=== PATIENT | male | born 2000 | race Caucasian/White ===

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

== ENCOUNTER 2021-04-11 11:16 | Emergency (ER) | payer MEDICAID, SELFPAY ==
[2021-04-11 11:17] VITALS: BP 139/75; PULSE 75; RESP 18; TEMP 36.2; O2SAT 98; BMI 34.2
[2021-04-11 12:32] LABS: Absolute Lymphocyte Count 1.45 X10^3/uL (0.83-4.51); Absolute Neutrophil Count 4.7 X10^3/uL (2.0-7.7); Basophil# 0.04 X10^3/uL; Basophil% 0.6 % (0-1); Eosinophil# 0.16 X10^3/uL; Eosinophils% 2.3 % (0-5); Hematocrit 45.6 % (40-54); Lymphocyte # 1.45 X10^3/ul (0.83-4.51); Lymphocyte % 20.7 % (19-41); Mean Corp Hgb Conc 35.1 g/dL (32-36); Mean Corpuscular Hgb 30.6 pg (27.0-32.0); Mean Corpuscular Volume 87.2 fL (80-94); Mean Platelet Vol. 10.5 fl (6.2-12.0); Monocyte# 0.61 X10^3/uL; Monocyte% 8.7 % (0-10); NRBC Flagged by Analyzer 0 % (0-5); Neutrophil # 4.73 X10^3/uL (2.7-7.7); Neutrophil % 67.4 % (47-70); Platelet Count 307 K/mm3 (150-450); RBC Distribution Width CV 12.6 % (11.6-14.6); RBC Distribution Width SD 40.2 fl (35.1-43.9); Red Blood Count 5.23 M/mm3 (4.6-6.2)
[2021-04-11 12:41] LABS: Anion Gap 7 (5-15); BUN 11 mg/dL (7-18); BUN/Creat Ratio 11.1 RATIO (10-20); Calcium,Total 9.3 mg/dL (8.5-10.1); Chloride 108 mmol/L (98-107); Creatinine, Serum 0.99 mg/dL (0.70-1.30); EST Glomerular Filtration Rate 103 mL/min (>60); Est Glom Filt Rate - Afr Amer 124 mL/min (>60); Estimated Creatinine Clearance 120.02 ml/min; Glucose 96 mg/dL (74-106); Potassium 3.7 mmol/L (3.5-5.1); Sodium Level 140 mmol/L (136-145)
[2021-04-11 13:01] LABS: Amphetamine Urine VISTA NEGATIVE (<1000 ng/mL); Barbiturate Urine VISTA NEGATIVE (< 200 ng/mL); Benzodiazepine Urine VISTA NEGATIVE (< 200 ng/mL); Cocaine Urine VISTA NEGATIVE (< 300 ng/mL); Ecstacy Urine VISTA NEGATIVE (< 500 ng/mL); Methadone Urine VISTA NEGATIVE (< 300 ng/mL); PCP Urine VISTA NEGATIVE (< 25 ng/mL); THC Urine VISTA POSITIVE (< 50 ng/mL)
[2021-04-11 13:06] LABS: Alcohol, Blood (Medical)-Serum < 3.0 mg/dL
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
[2021-04-11 13:45] LABS: Vista UDS pH Range 5
--- NOTE | 2021-04-11 14:13 | CM.ED ---
Informed charge nurse patient does not require sitter at this time. Awaiting physician determination.
--- NOTE | 2021-04-11 14:16 | CM.ED ---
Referral faxed and called to [place]. Pending review at this time. Albaro Morris, GOLDSMITH APPRENTICE, DATA CENTER ARCHITECT
--- NOTE | 2021-04-11 14:20 | EDS_ITS ---
HPI History of Present Illness Chief Complaint: Suicidal Narrative Narrative: 20-year-old male presenting with suicidal thoughts. He states that he does not currently have an exact plan but has considered putting a knife to his neck, hanging himself, or slicing open his wrists. Patient states that he has suffered from depression long-term for a few years. He is not medicated. He has 1 previous admission for suicidal thoughts and had not attempted to hurt himself at that time and has not gone further than cutting behavior. He did make some superficial cuts on his chest. Patient states that he is currently struggling with his depression because he lost both of his parents to COVID-19 recently. He presents to be admitted for psychiatric treatment because he is scared he will hurt himself. PFSH PFS Medical History Depression Home Medications NK 08/16/17 [History Last Taken Unknown] Allergy/AdvReac Type Severity Reaction Status Date / Time amoxicillin Allergy Hives Verified 04/11/21 11:21 PCN Allergy Hives Uncoded 04/11/21 11:21 Social History Smoking Status: Current every day smoker tobacco type: e-cigarettes ROS ROS ED Constitutional Constitutional ED: Denies chills, fever(s) or sweats Eyes Eyes: Denies blurry vision or change in vision ENT ENT ED: Denies ear pain or sore throat Cardiovascular Cardiovascular: Denies chest pain, palpitations or racing heartbeat Respiratory/Chest Respiratory/Chest: Denies cough, dyspnea or sputum Gastrointestinal Gastrointestinal: Denies abdominal pain, constipation, diarrhea, nausea or vomiting Genitourinary Genitourinary ED: Denies dysuria, hematuria or urinary frequency Musculoskeletal Musculoskeletal: Denies arthralgias, myalgias or neck pain Integumentary Denies abscess, Abrasions or rash Neurologic Neurologic: Denies headache(s), paresthesias or weakness Psychiatric Psychiatric: Reports suicidal ideation and suicidal thoughts; Denies anxiety or depression Endocrine Endocrinology: Denies polydipsia or polyuria EXAM Physical Exam Const Vital Signs: 04/11/21 11:17 04/11/21 15:01 04/11/21 15:05 Temperature 97.1 F L Temperature Source Temporal Pulse Rate 75 81 81 Respiratory Rate 18 16 16 Blood Pressure 139/75 H 129/72 H 129/72 H Blood Pressure Mean 96 91 91 Pulse Ox 98 98 98 Oxygen Delivery Method Room Air Room Air 04/11/21 16:00 Temperature Temperature Source Pulse Rate Respiratory Rate 16 Blood Pressure Blood Pressure Mean Pulse Ox Oxygen Delivery Method General Appearance ED: Negative for pallor HEENT Reports normocephalic, head/scalp atraumatic and moist mucous membranes Eyes PERRL and EOMs intact bilaterally Neck no lymphadenopathy and supple Chest Wall inspection of chest normal and palpation of chest normal Resp normal respiratory effort and clear to auscultation bilaterally Auscultation: Negative for rales, rhonchi or wheezes Cardio regular rate and regular rhythm GI normal to inspection, nondistended, normoactive bowel sounds and non-distended Auscultation: normoactive bowel sounds Palpation: soft Narrative: Deferred Back/Spine no CVA tenderness General Back: Negative for CVA tenderness Cervical Spine: Negative for cervical spine tenderness Extremity normal to inspection General Extremety ED: Yes edema and tenderness General Extremity: edema Neuro oriented x3 and CN's II-XII intact bilaterally Sensorium / Orientation: alert Motor Exam: strength 5/5 throughout Psych Psych Narrative: Admits to suicidal thoughts. Patient is calm. Attitude: calm, engaged and No agitated Activity / Motor Behavior: appropriate eye contact Thought Content: suicidality, No homicidality and No hallucination(s) Memory / Cognition: memory grossly intact Skin no wounds Skin Narrative: Superficial excoriations on chest wall General Skin Exam: Negative for jaundice or pallor MDM MDM MDM Narrative Medical decision making narrative: Patient presenting for psychiatric treatment due to his suicidal thoughts and several plans to hurt himself. He is currently very calm and cooperative and is seeking inpatient treatment. His lab work is normal. His EtOH is negative. Urine drug screen is normal. COVID-19 testing is negative. Patient is medically cleared at this time. Patient was accepted to [place]. Transported in stable condition. Impression: 1. Suicidal ideation Lab Data Attestation: I reviewed the patient's lab results. Labs: Laboratory Results - last 24 hr 04/11/21 04/11/21 04/11/21 12:20 12:20 12:20 WBC 7.0 RBC 5.23 Hgb 16.0 Hct 45.6 MCV 87.2 MCH 30.6 MCHC 35.1 RDW Std Deviation 40.2 RDW Coeff of Braulio 12.6 Plt Count 307 MPV 10.5 Immature Gran % (Auto) 0.300 Neut % (Auto) 67.4 Lymph % (Auto) 20.7 [place] % (Auto) 8.7 Eos % (Auto) 2.3 Baso % (Auto) 0.6 Absolute Neuts (auto) 4.7 Absolute Lymphs (auto) 1.45 Nucleated RBC % 0 Sodium 140 Potassium 3.7 Chloride 108 H Carbon Dioxide 25.0 Anion Gap 7 BUN 11 Creatinine 0.99 Estim Creat Clear Calc 120.02 Est GFR (MDRD) Af Amer 124 Est GFR (MDRD) Non-Af 103 BUN/Creatinine Ratio 11.1 Glucose 96 Calcium 9.3 Urine Opiates Screen Urine Methadone Screen Ur Barbiturates Screen Ur Phencyclidine Scrn Ur Amphetamines Screen U Methamphetamin-MDMA U Benzodiazepines Scrn Urine Cocaine Screen U Cannabinoids Screen Ur Drug Screen Comment Ethyl Alcohol < 3.0 04/11/21 12:30 WBC RBC Hgb Hct MCV MCH MCHC RDW Std Deviation RDW Coeff of Braulio Plt Count MPV Immature Gran % (Auto) Neut % (Auto) Lymph % (Auto) [place] % (Auto) Eos % (Auto) Baso % (Auto) Absolute Neuts (auto) Absolute Lymphs (auto) Nucleated RBC % Sodium Potassium Chloride Carbon Dioxide Anion Gap BUN Creatinine Estim Creat Clear Calc Est GFR (MDRD) Af Amer Est GFR (MDRD) Non-Af BUN/Creatinine Ratio Glucose Calcium Urine Opiates Screen NEGATIVE Urine Methadone Screen NEGATIVE Ur Barbiturates Screen NEGATIVE Ur Phencyclidine Scrn NEGATIVE Ur Amphetamines Screen NEGATIVE U Methamphetamin-MDMA NEGATIVE U Benzodiazepines Scrn NEGATIVE Urine Cocaine Screen NEGATIVE U Cannabinoids Screen POSITIVE H Ur Drug Screen Comment Ethyl Alcohol Discharge Plan Triage Chief Complaint: Suicidal ED Provider: Félix Shah Dx/Rx/DC Orders Prescriptions: No Action NK RF: 0 Primary Care Provider: Claire Landon Referrals: Claire Landon MD [Primary Care Provider] - Disposition Disposition: Psychiatric Hospital or Unit Discharge Location: [place] Discharge Date/Time: 04/11/21 17:10
--- NOTE | 2021-04-11 14:46 | CM.ED ---
Patient has been accepted to [place] by Dr. Fsih to the [facility]. Nurse to call report to [phone]. Call to [facility] ETA 60 minutes. LARA Wild, EMPLOYEE RELATION MANAGER
[2021-04-11 15:01] VITALS: BP 129/72; PULSE 81; RESP 16; O2SAT 98
[2021-04-11 15:05] VITALS: BP 129/72; PULSE 81; RESP 16; O2SAT 98
[2021-04-11 16:00] VITALS: RESP 16
--- NOTE | 2021-04-11 16:07 | ED.RN ---
PHYSICIANS CALLED AND SAID IT WOULD BE ANOTHER 40 MINUTES
== END 2021-04-11 17:10 ==
PROVIDERS: Emergency Provider Student in an Organized Health Care Education/Training Program; PCP Pediatrics
DX: R45.851 Suicidal ideations (principal); F17.290 Nicotine dependence, other tobacco product, uncomplicated
CPT/HCPCS: 80048; 80307; 82077; 85025; 87426; 99285

== ENCOUNTER → 2021-10-21 | Outpatient (CLI) | payer MEDICAID, SELFPAY ==
[2021-10-21 17:27] LABS: Erythrocyte Sedimentation Rate 7 mm/hr (0-20)
[2021-10-21 17:59] LABS: CRP < 2.90 mg/L (0.0-3.0); LDH 174 U/L (87-241)
[2021-10-24 13:07] LABS: Anti-Centromere B Ab <0.2 AI (0.0-0.9); Anti-Chromatin <0.2 AI (0.0-0.9); Anti-Jo <0.2 AI (0.0-0.9); Anti-Scleroderma-70 AB <0.2 AI (0.0-0.9); RNP Ab <0.2 AI (0.0-0.9); SJOGREN'S Anti-SS-A test < 0.2 AI (0.0-0.9); SJOGREN'S Anti-SS-B test < 0.2 AI (0.0-0.9); Smith Ab <0.2 AI (0.0-0.9)
[2021-10-24 16:08] LABS: Endomysial Antibody IgA Negative (Negative)
[2021-10-24 20:16] LABS: Immunoglobulin A 122 mg/dL (90-386); t-Transglutaminase IgA <2 U/mL (0-3)
[2021-10-24 20:20] LABS: Anti-dsDNA Ab <1 IU/mL (0-9)
[2021-10-29 12:08] LABS: Albumin 3.9 g/dL (2.9-4.4); Alpha-1-Globulins 0.3 g/dL (0.0-0.4); Alpha-2-Globulins 0.9 g/dL (0.4-1.0); Cytoplasmic Ab (C-ANCA) <1:20 titer (Neg:<1:20); Gamma Globulin 1.4 g/dL (0.4-1.8); Immunoglobulin A 123 mg/dL (90-386); Immunoglobulin G 1278 mg/dL (671-1456); Immunoglobulin M 75 mg/dL (35-168); PROEL- TOTAL PROTEIN 7.8 g/dL (6.0-8.5)
[2021-10-29 21:18] LABS: Immunoglobulin E 257 IU/mL (6-495); Perinuclear Ab (P-ANCA) <1:20 titer (Neg:<1:20)
== END | disposition home or self-care (01) ==
LOC: LAB 14:58
PROVIDERS: PCP Pediatrics; Visit Provider Internal Medicine Gastroenterology
DX: R19.7 Diarrhea, unspecified (principal)
CPT/HCPCS: 36415; 82784; 82785; 83516; 83615; 84165; 85652; 86140; 86225; 86235; 86255; 86256; 86334

== ENCOUNTER → 2021-11-17 | Outpatient (CLI) | payer MEDICAID, SELFPAY ==
[2021-11-22 10:34] LABS: Pancreatic Elastase, Fecal 363 (>200)
[2021-11-24 15:27] LABS: Calprotectin, Stool 25 ug/g (0-120); Fats, Neutral Normal (.); Fats, Total Normal (.)
== END | disposition home or self-care (01) ==
LOC: LAB 11:47 → LABSPEC 12:12
PROVIDERS: PCP Pediatrics; Visit Provider Internal Medicine Gastroenterology
DX: R19.7 Diarrhea, unspecified (principal); K58.9 Irritable bowel syndrome, unspecified
CPT/HCPCS: 82653; 82705; 83630; 83993; 87177; 87209; 87493; 87506